=== PATIENT | male | born 1975 | race Caucasian/White ===

== ENCOUNTER 2020-07-09 10:12 | Observation (INO) | payer BC ==
[~2020-07-09] VITALS: Ht 182.9 cm; Wt 97.0 kg
[2020-07-09] MEDS ORDERED: ONDANSETRON 2MG/ML, 2ML ONE ×2 (10:39→14:42)
[2020-07-09] MEDS ORDERED: FAMOTIDINE 20 MG/2 ML ONE (10:41)
[2020-07-09 10:55] LABS: BASOPHILS % (AUTO) 0 % (0-1); EOSINOPHILS % (AUTO) 0 % (1-7); LYMPHOCYTES % (AUTO) 4 % (22-44); MEAN CORPUSCULAR HEMOGLOBIN 31.1 pg (27.5-34.5); MEAN CORPUSCULAR HGB CONC 33.7 g/dL (33.2-36.2); MEAN PLATELET VOLUME 8.2 fL (7.4-10.4); MONOCYTES % (AUTO) 5 % (2-9); NEUTROPHILS % (AUTO) 91 % (42-75); PLATELET COUNT 267 x10^3/uL (130-400); RED BLOOD COUNT 5.28 x10^6/uL (4.38-5.82); RED CELL DISTRIBUTION WIDTH 12.9 % (9.4-14.8)
--- NOTE | 2020-07-09 10:56 | NUR ---
PT COMES IN C/O RLQ ABDOMINAL PAIN 04/22 SINCE 399 MORNING. C/O NAUSEA, 1 EPISODE OF VOMITING, 2 EPISODES OF "LOOSE STOOLS". MONITORS CONNECTED. VSS. NAD. IV ACCESS OBTAINED. NS BOLUS INFUSING. ORDERED MEDICATION ADMIN. WILL CONTINUE TO MONTIOR
[2020-07-09] MEDS ORDERED: ONDANSETRON 2MG/ML, 2ML IVPush ONE (11:00)
[2020-07-09] MEDS ORDERED: SODIUM CHLORIDE 0.9% 1,000ML IVBOLUS ONE (11:00)
[2020-07-09] MEDS ORDERED: FAMOTIDINE 20 MG/2 ML IV ONE (11:00)
[2020-07-09] MEDS ORDERED: MAALOX/HYOSCYAMINE/LIDOCAINE 45 ML BTL PO ONE (11:00)
[2020-07-09] MEDS ORDERED: PLEASE ENTER ALLERGIES MC SCH (11:00)
[2020-07-09] MEDS ORDERED: SODIUM CHLORIDE FLUSH 10ML SYR IVF ONE (11:00)
[2020-07-09 11:05] LABS: ALANINE AMINOTRANSFERASE 30 U/L (12-78); ALBUMIN 4.2 g/dL (3.4-5.0); ANION GAP 4 mmol/L (5-15); CALCIUM 9.8 mg/dL (8.5-10.1); CHLORIDE 102 mmol/L (98-107)
[2020-07-09 11:07] LABS: ALKALINE PHOSPHATASE 34 U/L (45-117); BILIRUBIN,TOTAL 1.1 mg/dL (0.2-1.0); TOTAL PROTEIN 8.4 g/dL (6.4-8.2)
[2020-07-09] MEDS ORDERED: MAALOX/HYOSCYAMINE/LIDOCAINE 45 ML BTL ONE (11:12)
[2020-07-09 11:17] LABS: MD SCAN
--- NOTE | 2020-07-09 11:31 | NUR ---
PT RESTING ON CHARLI. PLAN OF CARE DISCUSSED. VSS. WILL CONTINUE TO MONITOR
[2020-07-09 11:35] LABS: MICROSCOPIC INDICATED
[2020-07-09] MEDS ORDERED: DIPHENHYDRAMINE 50 MG/ML, 1ML ONE (11:39)
[2020-07-09] MEDS ORDERED: OMNIPAQUE 350 MG/ML, 100ML BOTTLE ONE (11:54)
[2020-07-09] MEDS ORDERED: DIPHENHYDRAMINE 50 MG/ML, 1ML IVPush ONE (12:00)
[2020-07-09] MEDS ORDERED: MORPHINE SULFATE 4 MG/ML, 1ML ONE ×2 (12:07→13:18)
[2020-07-09] MEDS: MORPHINE SULFATE 4 MG/ML, 1ML IVPush PRN ×2 (12:13→13:20)
[2020-07-09] MEDS ORDERED: CEFOTETAN PMX 1GM/50ML 50 ML IV ONE (12:30)
--- NOTE | 2020-07-09 12:48 | NUR ---
PT RESTING ON GURNEY. STATES CONTINUED PAIN AT 7/10 DECREASED LEVEL FROM 10/10 PRIOR TO PAIN MEDICATION INTERVENTION. COVID SWAB COMPLETE. SURGERY SCHEDULED AT 1500. PT INFORMED. VSS. NAD. WILL CONTINUE TO MONITOR
--- NOTE | 2020-07-09 14:07 | NUR ---
PT RESTING ON CHARLI. VSS. NAD. WILL CONTINUE TO MONITOR
[2020-07-09] MEDS ORDERED: BUPIVACAINE/PF-EPI 0.5% 1:200K ONE (14:23)
--- NOTE | 2020-07-09 14:25 | NUR ---
REPORT GIVEN TO OR
--- NOTE | 2020-07-09 14:29 | NUR ---
PT RESTING ON GURNEY. STATES PAIN BETTER AT 5/10. PLAN OF CARE DISCUSSED. REPORT GIVEN TO SURGERY. BELONGINGS LIST DONE. VSS. NAD. WILL CONTINUE TO MONITOR
[2020-07-09] MEDS ORDERED: MIDAZOLAM 1 MG/ML, 2ML ONE (14:41)
[2020-07-09] MEDS ORDERED: FENTANYL PF 250 MCG/5ML ONE (14:41)
[2020-07-09] MEDS ORDERED: PROPOFOL 10 MG/ML, 20ML ONE (14:42)
[2020-07-09] MEDS ORDERED: CEFOTETAN 2 GM ONE (14:42)
[2020-07-09] MEDS ORDERED: SUCCINYLCHOLINE 20 MG/ML, 10ML ONE (14:42)
[2020-07-09] MEDS ORDERED: KETOROLAC 30 MG/1 ML ONE ×2 (14:42)
[2020-07-09] MEDS ORDERED: DEXAMETHASONE 4 MG/ML, 1ML ONE (14:42)
[2020-07-09] MEDS ORDERED: ACETAMINOPHEN 325 MG TABLET PO PRN (15:00)
[2020-07-09] MEDS ORDERED: PROMETHAZINE 25 MG/ML, 1ML IVPush PRN (15:00)
[2020-07-09] MEDS ORDERED: hydrALAzine 20 MG/ML, 1ML IV PRN (15:00)
[2020-07-09] MEDS ORDERED: HYDROmorphone 1 MG/ML, 1ML INJ IVPush PRN (15:00)
[2020-07-09] MEDS ORDERED: ONDANSETRON 2MG/ML, 2ML IVPush PRN ×2 (15:00→17:00)
[2020-07-09] MEDS ORDERED: MEPERIDINE/PF 25MG/0.5ML IVPush PRN (15:00)
[2020-07-09] MEDS ORDERED: LABETALOL 5MG/ML, 20ML IV PRN (15:00)
[2020-07-09] MEDS ORDERED: OXYcodone 5 MG/5 ML ORAL.SOL UDC PO PRN ×2 (15:00→17:00)
[2020-07-09] MEDS ORDERED: ROCURONIUM 10 MG/ML,10ML ONE (15:55)
[2020-07-09] MEDS ORDERED: LACTATED RINGERS 1,000 ML IV SCH (17:00)
[2020-07-09] MEDS ORDERED: FENTANYL PF 100 MCG/2ML ONE (17:12)
[2020-07-09] MEDS ORDERED: OXYcodone 5 MG/5 ML ORAL.SOL UDC ONE (17:13)
[2020-07-09] MEDS: FENTANYL PF 100 MCG/2ML IV PRN ×2 (17:16→17:27)
[2020-07-09 20:11] VITALS: BP 112/67
[2020-07-10 03:36] VITALS: BP 99/60
[2020-07-10] MEDS ORDERED: DIPHENHYDRAMINE 50 MG/ML, 1ML IVPush ONE (04:00)
[2020-07-10] MEDS ORDERED: DIPHENHYDRAMINE 25 MG CAPSULE ONE (07:25)
[2020-07-10] MEDS ORDERED: DIPHENHYDRAMINE 25 MG CAPSULE PO ONE (07:30)
[2020-07-10 08:00] VITALS: BP 113/71
[2020-07-10] MEDS ORDERED: DIPHENHYDRAMINE 25 MG CAPSULE PO PRN (08:00)
[2020-07-10] MEDS ORDERED: OXYC5TAB2 PO (08:18)
== END 2020-07-10 08:56 | disposition home or self-care (01) ==
LOC: ED 10:37 → EDIP 12:09 → 4NW 18:15
PROVIDERS: ADMIT Surgery; ATTEND Surgery
DX: K35.891 Other acute appendicitis without perforation, with gangrene (principal); Z20.828 Contact with and (suspected) exposure to other viral communicable diseases; Z91.041 Radiographic dye allergy status
CPT/HCPCS: 36415; 44970; 74177; 76700; 80053; 81001; 83690; 85025; 87086; 87635; 88304; 96361; 96365; 96366; 96375; 96376; 99285; G0378; J0330; J1100; J1200; J1885; J2250; J2270; J2405; J2704; J3010; J7030; J7120; Q9967